=== PATIENT | female | born 1965 | race Caucasian/White ===

== ENCOUNTER 2016-06-21 19:27 | Emergency (ER) | payer MEDICARE, MEDICAID ==
[2016-06-21] MEDS ORDERED: ONDANSETRON HCL 4 MG/2 ML 4 MG in SODIUM CHLORIDE 0.9% 100 ML 100 ML IV ONE (19:53)
[2016-06-21] MEDS ORDERED: PANTOPRAZOLE SODIUM 40 MG/10 ML PDS IV ONE (19:54)
[2016-06-21] MEDS ORDERED: PANTOPRAZOLE SODIUM 40 MG/10 ML PDS ONE (19:59)
[2016-06-21] MEDS ORDERED: ONDANSETRON HCL 4 MG/2 ML SOL ONE (19:59)
[2016-06-21] MEDS ORDERED: SODIUM CHLORIDE 0.9% 1000ML 1,000 ML IV SCH (20:00)
[2016-06-21 20:12] LABS: BASOPHILS % (AUTO) 2 % (0-3); EOSINOPHILS % (AUTO) 0 % (0-9); HEMATOCRIT 37 % (35-47); MEAN CORPUSCULAR HGB CONC 35.3 gm/dl (32.0-36.0); MEAN CORPUSCULAR VOLUME 93 fL (81-99); MONOCYTES % (AUTO) 9.8 % (0-12); NEUTROPHILS % (AUTO) 70.7 % (37-80)
[2016-06-21 20:25] LABS: ALBUMIN 3.2 gm/dl (3.4-5.0); CALCIUM 8.5 mg/dl (8.5-10.1)
[2016-06-21] MEDS ORDERED: KETOROLAC TROMETHAMINE 30 MG/ML SOL IM ONE (20:37)
[2016-06-21] MEDS ORDERED: KETOROLAC TROMETHAMINE 30 MG/ML SOL IV ONE (20:43)
[2016-06-21] MEDS ORDERED: KETOROLAC TROMETHAMINE 30 MG/ML SOL ONE (20:43)
[2016-06-21 21:18] VITALS: BP 130/63; PULSE 88; RESP 20; TEMP 97.2; O2SAT 95
== END 2016-06-21 22:24 | disposition home or self-care (01) | DRG 392 ==
LOC: ED 19:27
DX: K29.00 Acute gastritis without bleeding (principal)
CPT/HCPCS: 74020; 80053; 85025; 96365; 96374; 96375; 99284; 99285; J1885; J2405

== ENCOUNTER 2017-05-03 19:26 | Emergency (ER) | payer MEDICARE, MEDICAID ==
[2017-05-03 19:55] VITALS: BP 132/90; PULSE 91; RESP 18; TEMP 97.4; O2SAT 98
[2017-05-03 20:52] LABS: APPEARANCE,URINE Clear; BILIRUBIN,URINE NEGATIVE (NEGATIVE); COLOR,URINE Yellow; GLUCOSE, URINE (UA) NEGATIVE (NEGATIVE); KETONES,URINE NEGATIVE (NEGATIVE); LEUKOCYTE ESTERASE ,URINE 1+ (NEGATIVE); NITRATE,URINE NEGATIVE (NEGATIVE); OCCULT BLOOD,URINE NEGATIVE (NEG-TRACE); UROBILINOGEN,URINE 0.2 (0.2-1.0 EU)
[2017-05-03] MEDS ORDERED: MAGNESIUM HYDROXIDE 30 ML SUS PO ONE (20:55)
[2017-05-03] MEDS ORDERED: MAGNESIUM HYDROXIDE 30 ML SUS ONE (20:56)
[2017-05-03 21:03] LABS: RBC,URINE 0-2 (0-3AV/HPF)
== END 2017-05-03 21:05 | disposition other institution (70) | DRG 392 ==
LOC: ED 19:26
DX: K59.00 Constipation, unspecified (principal); Q90.9 Down syndrome, unspecified
CPT/HCPCS: 74020; 81001; 99282

== ENCOUNTER 2018-05-15 14:20 | Emergency (ER) | payer MEDICARE, MEDICAID ==
[2018-05-15] MEDS ORDERED: LORAZEPAM 2 MG/ML SOL IM ONE ×2 (14:35→15:40)
[2018-05-15 14:37] VITALS: RESP 18
[2018-05-15] MEDS ORDERED: LORAZEPAM 2 MG/ML SOL ONE (15:39)
[2018-05-15 17:00] LABS: BASOPHILS % (AUTO) 0 % (0-3); EOSINOPHILS % (AUTO) 0 % (0-9); HEMATOCRIT 38 % (35-47); HEMOGLOBIN 12.2 gm/dl (12.0-15.5); LYMPHOCYTES % (AUTO) 3.8 % (10-50); MEAN CORPUSCULAR HEMOGLOBIN 31.6 pg (27.0-32.0); MEAN CORPUSCULAR HGB CONC 32.4 gm/dl (32.0-36.0); MEAN CORPUSCULAR VOLUME 98 fL (81-99); MONOCYTES % (AUTO) 3.1 % (0-12); NEUTROPHILS % (AUTO) 92.6 % (37-80)
[2018-05-15 17:12] LABS: ALBUMIN 2.8 gm/dl (3.4-5.0); BILIRUBIN,TOTAL 0.4 mg/dl (0.2-1.0); CREATININE 0.91 mg/dl (0.60-1.00); POTASSIUM 3.9 mMol/L (3.5-5.1); TOTAL PROTEIN 7.7 gm/dl (6.4-8.2)
[2018-05-15] MEDS ORDERED: SODIUM CHLORIDE 0.9% 250 ML 250 ML IV ONE (18:00)
[2018-05-15] MEDS ORDERED: SODIUM CHLORIDE 0.9% 1000ML 1,000 ML IV ONE (18:22)
[2018-05-15] MEDS ORDERED: HYDROMORPHONE 1 MG/ML SYRINGE IV PRN (18:34)
[2018-05-15 18:38] LABS: APPEARANCE,URINE Clear; BILIRUBIN,URINE NEGATIVE (NEGATIVE); COLOR,URINE Yellow; GLUCOSE, URINE (UA) NEGATIVE (NEGATIVE); KETONES,URINE TRACE (NEGATIVE); LEUKOCYTE ESTERASE ,URINE NEGATIVE (NEGATIVE); NITRATE,URINE NEGATIVE (NEGATIVE); OCCULT BLOOD,URINE NEGATIVE (NEG-TRACE); PH,URINE 8.5; UROBILINOGEN,URINE 0.2 (0.2-1.0 EU)
[2018-05-15 19:02] LABS: EPITHELIAL CELLS 0-2 (SQUAMOUS); RBC,URINE 0-1 (0-3AV/HPF); WBC,URINE 0-2 (0-5AV/HPF)
[2018-05-15 19:03] LABS: BACTERIA TRACE (< 1+); CRYSTALS 1+ (0-3 AVE/HPF)
[2018-05-15] MEDS ORDERED: HYDROMORPHONE 1 MG/ML SYRINGE IV ONE (19:11)
[2018-05-15 20:10] VITALS: TEMP 98.3
[2018-05-15] MEDS ORDERED: HYDROMORPHONE 1 MG/ML SYRINGE ONE (20:29)
[2018-05-15 20:55] VITALS: BP 118/74; PULSE 84
[2018-05-15 23:24] VITALS: O2SAT 84
== END 2018-05-15 20:50 | disposition short-term general hospital (02) | DRG 536 ==
LOC: ED 14:20
DX: S72.141A Displaced intertrochanteric fracture of right femur, initial encounter for closed fracture (principal); X58.XXXA Exposure to other specified factors, initial encounter; Y93.9 Activity, unspecified; Z55.9 Problems related to education and literacy, unspecified
CPT/HCPCS: 36415; 70450; 71045; 72125; 72126; 72170; 73552; 80053; 81001; 85025; 93005; 96365; 96366; 96372; 96374; 99284; 99285; G0390; J2060; J1170